=== PATIENT | female | born 1985 | race Caucasian/White ===

== ENCOUNTER → 2021-10-22 | Outpatient (CLI) | payer OTHER ==
--- NOTE | 2021-10-22 17:44 | RAD ---
INDICATION: Reason: DYSMENORRHEA / Spl. Instructions: / History: COMPARISON: None. TECHNIQUE: Grayscale and color ultrasound images uterus and adnexa. FINDINGS: Uterus: 90 x 49 x 38 mm. 6 mm endometrial stripe Right Ovary: 23 x 23 x 13 mm. Left Ovary: 29 x 18 x 16 mm. Vascular flow identified to bilateral ovaries. Urinary bladder is well distended at time of exam. IMPRESSION: * Vascular flow seen to the ovaries. Electronically signed by: Ede Fan MD (10/22/2021 5:41 PM) [id number]
== END ==
LOC: US 10:20
PROVIDERS: ATTEND Physician Assistant
DX: N92.0 Excessive and frequent menstruation with regular cycle (principal); N32.89 Other specified disorders of bladder
CPT/HCPCS: 76856